=== PATIENT | male | born 1980 | race Two or more races ===

== ENCOUNTER 2019-02-10 10:51 | Emergency (ER) | payer OTHER ==
[~2019-02-10] VITALS: Ht 172.7 cm; Wt 102.1 kg
[2019-02-10 11:13] LABS: BASOPHILS # (AUTO) 0.1 /CMM (0.0-0.2); BASOPHILS % (AUTO) 0.6 % (0.0-2.0); EOSINOPHILS % (AUTO) 0.1 % (0.0-6.0); HEMATOCRIT 46 % (39-51); HEMOGLOBIN 15.6 g/dL (13.5-17.5); LYMPHOCYTES # (AUTO) 2.5 /CMM (0.8-4.8); LYMPHOCYTES % (AUTO) 24.2 % (20.0-44.0); MEAN CORPUSCULAR HGB CONC 34 g/dl (31.0-36.0); MEAN CORPUSCULAR VOLUME 86 fL (80-96); MONOCYTES # (AUTO) 0.7 /CMM (0.1-1.30); MONOCYTES % (AUTO) 6.4 % (2.0-12.0); NEUTROPHILS # (AUTO) 7.1 /CMM (1.8-8.9); NEUTROPHILS % (AUTO) 68.7 % (43.0-81.0); PLATELET COUNT (AUTO) 245 /CMM (150-450); WHITE BLOOD COUNT (AUTO) 10.3 K/uL (4.3-11.0)
[2019-02-10] MEDS ORDERED: ONDANSETRON HCL/PF 4 MG/2 ML VIAL ONE (11:14)
[2019-02-10] MEDS ORDERED: ONDANSETRON HCL/PF 4 MG/2 ML VIAL IVP ONE (11:30)
[2019-02-10] MEDS ORDERED: IV NS 0.9% 1,000 ML BAG IV ONE ×2 (11:30)
[2019-02-10 11:32] LABS: CARBON DIOXIDE 23 mmol/L (21-32); CHLORIDE 101 mmol/L (98-107); GLUCOSE 127 mg/dL (74-106); POTASSIUM 3.3 mmol/L (3.5-5.1); SODIUM SERUM 138 mmol/L (136-145); UREA NITROGEN, BLOOD 10 mg/dL (7-18)
[2019-02-10 11:37] LABS: ALANINE AMINOTRANSFERASE 63 U/L (12-78); ALBUMIN 4.5 g/dL (3.4-5.0); ALKALINE PHOSPHATASE 83 U/L (46-116); ASPARTATE AMINOTRANSFERASE 37 U/L (15-37); BILIRUBIN,DIRECT 0.1 mg/dL (0.0-0.2); BILIRUBIN,TOTAL 0.3 mg/dL (0.2-1.0); LIPASE 152 U/L (73-393); TOTAL PROTEIN, SERUM 8.3 g/dL (6.4-8.2)
--- NOTE | 2019-02-10 12:31 | NUR ---
OK TO BOOKED AGREES TO FOLLOW PMD IN 2 DAYS DC WITH [employer]
[2019-02-10 12:34] VITALS: BP 145/67
== END 2019-02-10 12:36 ==
LOC: ER 10:52
DX: T51.91XA Toxic effect of unspecified alcohol, accidental (unintentional), initial encounter (principal); R10.32 Left lower quadrant pain; Y92.89 Other specified places as the place of occurrence of the external cause
CPT/HCPCS: 36415; 71045; 74176; 80048; 80076; 80307; 83690; 84484; 85025; 93005; 96374; 99284; J2405; J7030; G0480

== ENCOUNTER 2023-06-30 02:00 | Emergency (ER) | payer SELFPAY ==
[~2023-06-30] VITALS: Ht 172.7 cm; Wt 79.8 kg
[2023-06-30 02:15] VITALS: BP 143/79; TEMP 98.1; O2SAT 98
== END 2023-06-30 02:43 ==
LOC: ER 02:13
DX: R73.9 Hyperglycemia, unspecified (principal)
CPT/HCPCS: 82962-TC